=== PATIENT | male | born 1995 | race Caucasian/White ===

== ENCOUNTER 2021-05-20 10:30 | Emergency (ER) | payer BC ==
[2021-05-20] MEDS ORDERED: Bupivacaine 0.5% 10 ML SDV INJECT ONE (13:54)
[2021-05-20] MEDS ORDERED: Diphtheria,Pertussis(Acell),Tetanus Vaccine 0.5 ML Syringe IM ONE (14:41)
== END 2021-05-20 15:20 | disposition home or self-care (01) ==
LOC: MW.ED 10:30
DX: S61.211A Laceration without foreign body of left index finger without damage to nail, initial encounter (principal); Z23 Encounter for immunization; W26.0XXA Contact with knife, initial encounter; Y99.0 Civilian activity done for income or pay
CPT/HCPCS: 12001; 90471; 90715; 99282; J3490